=== PATIENT | male | born 1990 ===

== ENCOUNTER 2020-11-10 16:58 | Emergency (ER) | payer SELFPAY ==
[~2020-11-10] VITALS: Ht 180.3 cm; Wt 72.2 kg
[2020-11-10] MEDS ORDERED: ONDANSETRON ODT 4 MG ONE (17:53)
[2020-11-10] MEDS ORDERED: LORazepam 1MG TABLET ONE (17:53)
[2020-11-10] MEDS ORDERED: ONDANSETRON 2MG/ML, 2ML ONE (17:54)
--- NOTE | 2020-11-10 17:59 | NUR ---
PT IN GOWN IN [facility]. PT ATTACHED TO VS MONITORS. VSS AT THIS TIME. PIV ACCESS ESTABLISHED AND LABS DRAWN PER VERBAL ORDERS FROM SOLOMON ROGERS AT BS. PT EDUCATED ON ER PROCESS AND POC AND VERBALIZES UNDERSTANDING. PT MEDICATED PER MAR AT THIS TIME AND HAS CALL LIGHT WITHIN REACH.
[2020-11-10] MEDS ORDERED: SODIUM CHLORIDE FLUSH 10ML SYR IVF ONE (18:00)
[2020-11-10] MEDS ORDERED: LORazepam 1MG TABLET PO ONE (18:00)
[2020-11-10] MEDS ORDERED: SODIUM CHLORIDE 0.9% 1,000ML IVBOLUS ONE (18:00)
[2020-11-10] MEDS ORDERED: ONDANSETRON 2MG/ML, 2ML IVPush ONE (18:00)
[2020-11-10 18:03] LABS: BASOPHILS % (AUTO) 1 % (0-1); EOSINOPHILS % (AUTO) 2 % (1-7); LYMPHOCYTES % (AUTO) 15 % (22-44); MEAN CORPUSCULAR HEMOGLOBIN 32.2 pg (27.5-34.5); MEAN CORPUSCULAR HGB CONC 34.1 g/dL (33.2-36.2); MEAN PLATELET VOLUME 8.9 fL (7.4-10.4); MONOCYTES % (AUTO) 11 % (2-9); NEUTROPHILS % (AUTO) 71 % (42-75); PLATELET COUNT 280 x10^3/uL (130-400); RED BLOOD COUNT 5.22 x10^6/uL (4.38-5.82); RED CELL DISTRIBUTION WIDTH 13.6 % (9.4-14.8)
[2020-11-10 18:13] LABS: ALANINE AMINOTRANSFERASE 107 U/L (12-78); ALBUMIN 4.2 g/dL (3.4-5.0); ANION GAP 15 mmol/L (5-15); CALCIUM 9.3 mg/dL (8.5-10.1); CHLORIDE 102 mmol/L (98-107); CREATININE 0.79 mg/dL (0.7-1.3)
[2020-11-10 18:15] LABS: ALKALINE PHOSPHATASE 50 U/L (45-117); BILIRUBIN,TOTAL 1.4 mg/dL (0.2-1.0); TOTAL PROTEIN 8.2 g/dL (6.4-8.2)
[2020-11-10 18:42] LABS: MICROSCOPIC NOT IND
--- NOTE | 2020-11-10 18:57 | NUR ---
PT STATES "I FEEL SO MUCH BETTER". BS REPORT OF PT TO KEL ODEN. ALL QUESTIONS ANSWERED. PT VSS AT THIS TIME.
--- NOTE | 2020-11-10 19:30 | NUR ---
Attempted to call [employer] x 2, no answer. phone rang 20 times each. will try again
[2020-11-10 19:40] VITALS: BP 149/89
== END 2020-11-10 19:44 ==
LOC: ED 17:03
DX: F10.10 Alcohol abuse, uncomplicated (principal); R19.7 Diarrhea, unspecified; R11.0 Nausea; Y90.0 Blood alcohol level of less than 20 mg/100 ml
CPT/HCPCS: 36415; 80053; 81003; 85025; 96361; 96374; 99283; J2405; J7030